=== PATIENT | female | born 1970 | race Caucasian/White ===

== ENCOUNTER 2019-04-02 15:26 | Outpatient (CLI) | payer BC, SELFPAY ==
--- NOTE | 2019-04-02 15:00 | DI.RAD_ITS ---
SYMPTOM/DIAGNOSIS: COUGH X 2 MONTHS R05 PA AND LATERAL CHEST: 04/02 The heart is normal in size. The lungs are clear. The mediastinal structures and pleura appear intact. CONCLUSION: Normal chest.
[2019-04-02 15:32] LABS: Abs Immature Grans 0.02 k/cumm (0.0-0.09); Absolute Basophil Count 0.03 k/cumm (0.0-0.2); Absolute Eosinophil Count 0.07 k/cumm (0.0-0.7); Absolute Lymphocyte Count 1.09 k/cumm (1.2-3.4); Absolute Monocyte Count 0.67 k/cumm (0.11-0.7); Absolute Neutrophil Count 5.21 k/cumm (1.2-6.7); Basophils % 0.4; HCT 40.8 % (36.0-46.0); HGB 13.5 g/dL (12.0-15.5); Immature Grans % 0.3; Lymphocytes % 15.4; Mean Corp. HGB Concentration 33.1 g/dL (32.0-36.0); Mean Corpuscular Volume 93.6 fL (80-95); Mean Platelet Volume 9.7 fL (8.0-11.0); Monocytes % 9.4; Neutrophils % 73.5; Platelet Count 403 x1000/uL (130-400); RBC 4.36 m/cumm (4.00-5.20); RBC Distribution Width 13.5 % (11.7-14.6); White Blood Cell Count 7.09 k/cumm (4.4-10.8)
[2019-04-02 16:52] LABS: ALT 22 U/L (14-59); AST 15 U/L (15-37); Albumin 3.9 g/dL (3.4-5.0); Alkaline Phosphatase 83 U/L (46-116); Anion Gap 9.3 mmol/L (3-11); BUN 15 mg/dL (7-18); Bilirubin, Total 0.3 mg/dL (0.2-1.0); CO2 26.7 mmol/L (21.0-32.0); CREATININE 0.79 mg/dL (0.55-1.02); Calcium 9.4 mg/dL (8.5-10.1); Chloride 100 mmol/L (98-107); Glucose 86 mg/dL (70-100); Potassium 4.3 mmol/L (3.5-5.1); Sodium 136 mmol/L (136-145); TSH 1.98 uIU/mL (0.36-3.74); Total Protein 7.4 g/dL (6.4-8.2)
== END 2019-04-02 15:46 ==
PROVIDERS: PCP Internal Medicine; Visit Provider Internal Medicine
DX: R05 Cough (principal); R10.9 Unspecified abdominal pain; R53.83 Other fatigue; R50.9 Fever, unspecified
CPT/HCPCS: 36415; 80053; 71046; 84443; 85025

== ENCOUNTER 2019-04-02 15:47 | Outpatient (REF) | payer BC, SELFPAY ==
--- NOTE | 2019-04-02 | PAPFT_PTH ---
PATIENT: Radha Boyce LOC: [facility] U#:[id number] AGE/SX: 48/F ROOM: RE04/02/[address]: Alda Lebron MD : 1970 BED: DIS: 04/02/2019 SPEC #: [id number] RECD: 04/03/19 12:50 STATUS: ADRIANA REQ #: [id number] HERBERT: 04/02/19 00:[address]: Alda Chaves DEPT: [facility] Cytology RECD BY: Melonie Anderson Tissues: 1 - CX/ENDOCX FOR PAP SMEARS Procedures: PAP THIN PREP/UVM Screening HPV DNA PROBE Comments: [id number]
== END 2019-04-02 16:07 ==
LOC: LBN 15:47
PROVIDERS: PCP Internal Medicine; Visit Provider Internal Medicine
DX: Z12.4 Encounter for screening for malignant neoplasm of cervix (principal); Z11.51 Encounter for screening for human papillomavirus (HPV)
CPT/HCPCS: 88142; 87624

== ENCOUNTER 2019-05-24 01:27 | Outpatient (CLI) | payer BC, SELFPAY ==
--- NOTE | 2019-05-24 12:05 | DI.MAMMO_ITS ---
EXAM: MG MAMMO SCREENING CLINICAL HISTORY: screening Z12.39 TECHNIQUE: Bilateral full field digital CC and MLO mammographic images were obtained with 3D tomosyn thesis and utilizing computer aided detection (CAD). COMPARISON: 2016 from [facility]. FINDINGS: The breasts are composed of heterogeneously dense fibroglandular tissue, breast density category C. No suspicious microcalcifications are seen.There has been no significant change. IMPRESSION: BI-RADS category 1, negative mammogram. Yearly screening mammography is recommended. BI-RADS Cat 1 - Negative. Breast Density - Category C - Heterogeneously dense.
== END 2019-05-24 01:47 ==
PROVIDERS: PCP Internal Medicine; Visit Provider Internal Medicine
DX: Z12.31 Encounter for screening mammogram for malignant neoplasm of breast (principal)
CPT/HCPCS: 77063; 77067

== ENCOUNTER 2020-04-10 20:55 | Outpatient (REF) | payer BC, SELFPAY ==
[2020-04-10 21:49] LABS: Calculated LDL 91 mg/dL (<100); Cholesterol 218 mg/dL (<200); HDL Cholesterol 114 mg/dL (40-60); Triglyceride 68 mg/dL (<150)
[2020-04-10 22:08] LABS: Hemoglobin A1C 5.3 % (<5.7)
== END 2020-04-10 21:15 ==
LOC: LBN 20:55
PROVIDERS: PCP Nurse Practitioner; Visit Provider Nurse Practitioner
DX: Z13.1 Encounter for screening for diabetes mellitus (principal); Z13.6 Encounter for screening for cardiovascular disorders
CPT/HCPCS: 80061; 83036

== ENCOUNTER 2020-05-26 02:15 | Outpatient (CLI) | payer BC, SELFPAY ==
--- NOTE | 2020-05-26 07:00 | DI.MAMMO_ITS ---
EXAM: MG MAMMO SCREENING CLINICAL HISTORY: screening,Z12.39 TECHNIQUE: Bilateral full field digital CC and MLO mammographic images were obtained with 3D tomosyn thesis and utilizing computer aided detection (CAD). COMPARISON: Available for comparison. FINDINGS: Masses/Architectural Distortion: None seen. Microcalcifications: No suspicious pleomorphic-type are seen. Skin Thickening/Nipple Retraction: None. IMPRESSION: 1. No significant interval change with no specific features of malignancy noted. 2. Unless there is more urgent need, screening mammography is recommended, as per [employer] guidelines. BI-RADS Category 1 - Negative Breast Density - Category C - Heterogeneously dense The mammogram demonstrates the patient's breast tissue is dense. Dense breast tissue is very common a nd is not abnormal but dense breast tissue can make it harder to find cancer on a mammogram. Also, de nse breast tissue may increase their breast cancer risk. This information about the result of the [facility] mogram report was provided to the patient to raise their awareness. Use this report when you speak wi th the patient about their risks for breast cancer, which includes their family history. At that time , you may recommend for more screening tests (Ultrasound or MRI) as they might be useful based on the ir risk. A negative radiographic report should not delay biopsy if a dominant or clinically suspicious mass is present. Up to ten percent of cancers are not identified on mammography. A negative report may reinforce clinical impression. Adenosis and dense breasts may obscure an underlying neoplasm. False positive reports average 6 to 10%. Patient will receive a letter notifying them of these results.
== END 2020-05-26 02:35 ==
PROVIDERS: PCP Nurse Practitioner; Visit Provider Nurse Practitioner
DX: Z12.31 Encounter for screening mammogram for malignant neoplasm of breast (principal)
CPT/HCPCS: 77063; 77067

== ENCOUNTER 2020-10-10 13:43 | Outpatient (CLI) | payer BC, SELFPAY ==
--- NOTE | 2020-10-10 10:00 | DI.RAD_ITS ---
EXAM: XR ELBOW RT COMPLETE CLINICAL HISTORY: elbow pain x4 months, no known injury, M25.521. TECHNIQUE: 2D digital imaging was performed. COMPARISON: No exams were available for comparison FINDINGS: BONES: No acute fracture is present. No bony destructive lesion is seen. JOINTS: The elbow is normally aligned. No joint effusion is seen. SOFT TISSUE: Normal. IMPRESSION: Unremarkable radiographs of the right elbow. DATA REPOSITORY: RADIATION DOSE DELIVERED:
== END 2020-10-10 14:03 ==
DX: M25.521 Pain in right elbow (principal)
CPT/HCPCS: 73080

== ENCOUNTER 2021-07-27 01:01 | Outpatient (CLI) | payer BC, SELFPAY ==
--- NOTE | 2021-07-27 07:00 | DI.MAMMO_ITS ---
Exam(s) MAMMO SCREENING EXAM: MAMMO SCREENING CLINICAL HISTORY: screening,z12.39 TECHNIQUE: Mammograms were interpreted according to the usual protocol including computer analysis w [employer] CAD system, tomosynthesis and C-view imaging. COMPARISON: 2015 through 2019 FINDINGS: The breasts are composed of scattered fibroglandular densities, Breast Density category B. No suspicious masses or suspicious microcalcifications are seen. No skin thickening or abnormal axillary lymph nodes are seen. There has been no significant change from prior exams. IMPRESSION: BI-RADS Category 1, Negative mammogram Yearly screening mammography is recommended. Breast Density - Category B, scattered fibroglandular densities. A negative radiographic report should not delay biopsy if a dominant or clinically suspicious mass is present. Up to ten percent of cancers are not identified on mammography. A negative report may reinforce clinical impression. Adenosis and dense breasts may obscure an underlying neoplasm. False positive reports average 6 to 10%. Patient will receive a letter notifying them of these results.
== END 2021-07-27 01:21 ==
DX: Z12.31 Encounter for screening mammogram for malignant neoplasm of breast (principal)
CPT/HCPCS: 77063; 77067

== ENCOUNTER 2021-07-27 02:38 | Outpatient (CLI) | payer BC, SELFPAY ==
[2021-07-27 09:01] LABS: ALT 38 U/L (14-59); AST 29 U/L (15-37); Albumin 3.9 g/dL (3.4-5.0); Alkaline Phosphatase 93 U/L (46-116); BUN 29 mg/dL (7-18); Bilirubin, Total 0.3 mg/dL (0.2-1.0); Calcium 9.5 mg/dL (8.5-10.1); Chloride 103 mmol/L (98-107); Glucose 86 mg/dL (74-106); Potassium 4.9 mmol/L (3.5-5.1); Sodium 142 mmol/L (136-145); Total Protein 7.6 g/dL (6.4-8.2)
== END 2021-07-27 02:39 | disposition home or self-care (01) ==
LOC: LBO 02:38
DX: Z00.00 Encounter for general adult medical examination without abnormal findings (principal)
CPT/HCPCS: 36415; 80053

== ENCOUNTER 2023-01-13 20:30 | Outpatient (REF) | payer BC, SELFPAY ==
[2023-01-13 20:32] LABS: Source Nasal/Nares
[2023-01-13 21:17] LABS: COVID-19 PCR Negative (Negative)
== END 2023-01-13 20:31 | disposition home or self-care (01) ==
LOC: LBN 20:30
PROVIDERS: PCP Family Medicine; Visit Provider Nurse Practitioner Family
DX: R53.83 Other fatigue (principal); Z20.822 Contact with and (suspected) exposure to COVID-19
CPT/HCPCS: 87635; U0003

== ENCOUNTER 2023-01-18 02:02 | Outpatient (CLI) | payer BC, SELFPAY ==
[2023-01-18 14:12] LABS: Abs Immature Grans 0.02 10^3/uL (0.0-0.06); Absolute Basophil Count 0.04 10^3/uL (0.0-0.2); Absolute Eosinophil Count 0.09 10^3/uL (0.0-0.7); Absolute Lymphocyte Count 1.27 10^3/uL (1.2-3.4); Absolute Monocyte Count 0.62 10^3/uL (0.1-0.8); Basophils % 0.7; Eosinophils % 1.5; HCT 38.6 % (36.0-46.0); HGB 12.8 g/dL (11.2-15.7); Immature Grans % 0.3; Lymphocytes % 20.7; MCH 31.1 pg (27.0-33.0); MCHC 33.2 % (32.0-36.0); MCV 94 fL (80-95); MPV 9.7 fL (8.0-11.0); Monocytes % 10.1; Neutrophils % 66.7; Platelet Count 323 10^3/uL (130-400); RBC 4.12 10^6/uL (3.93-5.22); RDW 13.2 % (11.7-14.6); RDW-SD 45.7 fL; WBC 6.14 10^3/uL (4.4-10.8)
[2023-01-18 15:05] LABS: Anion Gap 9.5 mmol/L (3-11); BUN 13 mg/dL (7-18); CO2 27.5 mmol/L (21.0-32.0); CREATININE 0.9 mg/dL (0.55-1.02); Calcium 9.2 mg/dL (8.5-10.1); Calculated LDL 109 mg/dL (<100); Chloride 104 mmol/L (98-107); Cholesterol 224 mg/dL (<200); Estimated GFR 75.97 (mL/min/1.73m2); Glucose 99 mg/dL (74-106); HDL Cholesterol 104 mg/dL (40-60); Potassium 4.1 mmol/L (3.5-5.1); Sodium 141 mmol/L (136-145); Triglyceride 56 mg/dL (<150)
== END 2023-01-18 02:03 | disposition home or self-care (01) ==
PROVIDERS: PCP Family Medicine; Visit Provider Nurse Practitioner Family
DX: F32.9 Major depressive disorder, single episode, unspecified (principal); J45.20 Mild intermittent asthma, uncomplicated; K58.9 Irritable bowel syndrome, unspecified; Z00.00 Encounter for general adult medical examination without abnormal findings
CPT/HCPCS: 36415; 80048; 80061; 85025

== ENCOUNTER 2023-01-27 02:22 | Outpatient (CLI) | payer BC, SELFPAY ==
--- NOTE | 2023-01-27 12:40 | DI.MAMMO_ITS ---
Exam(s) MAMMO SCREENING EXAM: MAMMO SCREENING CLINICAL HISTORY: screening, Z12.39 TECHNIQUE: Mammograms were interpreted according to the usual protocol including computer analysis w [employer] CAD system, tomosynthesis and C-view imaging. COMPARISON: 2015 through 2021 FINDINGS: The breasts are composed of scattered fibroglandular densities, Breast Density category B. No suspicious masses or suspicious microcalcifications are seen. No skin thickening or abnormal axillary lymph nodes are seen. There has been no significant change from prior exams. IMPRESSION: BI-RADS Category 1, Negative mammogram Yearly screening mammography is recommended. Breast Density - Category B, scattered fibroglandular densities. A negative radiographic report should not delay biopsy if a dominant or clinically suspicious mass is present. Up to ten percent of cancers are not identified on mammography. A negative report may reinforce clinical impression. Adenosis and dense breasts may obscure an underlying neoplasm. False positive reports average 6 to 10%. Patient will receive a letter notifying them of these results.
== END 2023-01-27 02:42 ==
LOC: DI 02:22
PROVIDERS: PCP Family Medicine; Visit Provider Nurse Practitioner Family
DX: Z12.31 Encounter for screening mammogram for malignant neoplasm of breast (principal)
CPT/HCPCS: 77063; 77067

== ENCOUNTER 2024-02-10 18:02 | Outpatient (REF) | payer BC, SELFPAY | END 2024-02-10 18:03 | disposition home or self-care (01) | LOC: LBN 18:02 | PROVIDERS: PCP Nurse Practitioner Family; Visit Provider Nurse Practitioner Family | DX: N89.8 Other specified noninflammatory disorders of vagina (principal) | CPT/HCPCS: 87480; 87510; 87660 ==

== ENCOUNTER 2024-02-13 10:13 | Outpatient (REF) | payer BC, SELFPAY ==
--- NOTE | 2024-02-13 09:00 | PAPFT_PTH ---
PATIENT: Radha Boyce LOC: [facility] U#:[id number] AGE/SX: 53/F ROOM: RE02/13/[address]: Eileen Peterson NP : 1970 BED: DIS: 02/13/2024 SPEC #: [id number] RECD: 02/13/24 13:23 STATUS: ADRIANA SHIPMAN #: [id number] HERBERT: 02/13/24 09:[address]: Eileen Peterson DEPT: [facility] Cytology RECD BY: Melonie Anderson Tissues: 1 - CX/ENDOCX FOR PAP SMEARS Procedures: PAP THIN PREP/UVM Screening HPV DNA PROBE Comments: [id number] (HPV 16 & 18/45)
== END 2024-02-13 10:14 | disposition home or self-care (01) ==
LOC: LBN 10:13
PROVIDERS: PCP Nurse Practitioner Family; Visit Provider Nurse Practitioner Family
DX: R06.83 Snoring (principal); Z00.00 Encounter for general adult medical examination without abnormal findings; F33.9 Major depressive disorder, recurrent, unspecified; K58.9 Irritable bowel syndrome, unspecified; J45.20 Mild intermittent asthma, uncomplicated; E66.3 Overweight; R53.83 Other fatigue
CPT/HCPCS: 88142; 87624

== ENCOUNTER 2024-02-20 12:34 | Outpatient (CLI) | payer BC, SELFPAY ==
[2024-02-20 11:34] LABS: HGB 14.3 g/dL (11.2-15.7); MCH 31.5 pg (27.0-33.0); MCHC 33.3 % (32.0-36.0); MCV 95 fL (80-95); Platelet Count 381 10^3/uL (130-400); RBC 4.54 10^6/uL (3.93-5.22); RDW-SD 45.5 fL
[2024-02-20 12:19] LABS: Anion Gap 8.6 mmol/L (3-11); BUN 17 mg/dL (7-18); CO2 28.4 mmol/L (21.0-32.0); CREATININE 0.9 mg/dL (0.55-1.02); Calcium 9.6 mg/dL (8.5-10.1); Calculated LDL 121 mg/dL (<100); Chloride 102 mmol/L (98-107); Cholesterol 258 mg/dL (<200); Ferritin 184 ng/mL (8-252); Glucose 85 mg/dL (74-106); HDL Cholesterol 130 mg/dL (40-60); Potassium 4.3 mmol/L (3.5-5.1); Sodium 139 mmol/L (136-145); TSH (W/Ref FT4) 1.34 uIU/mL (0.36-3.74); Triglyceride 39 mg/dL (<150)
[2024-02-20 13:20] LABS: Iron 115 ug/dL (50-170); Total Iron Binding Capacity 308 ug/dL (250-450); Transferrin Sat 37 % (15-50)
== END 2024-02-20 12:35 | disposition home or self-care (01) ==
LOC: LBO 12:34
PROVIDERS: PCP Nurse Practitioner Family; Visit Provider Nurse Practitioner Family
DX: R06.83 Snoring (principal); J45.20 Mild intermittent asthma, uncomplicated; K58.9 Irritable bowel syndrome, unspecified; F33.9 Major depressive disorder, recurrent, unspecified; R53.83 Other fatigue
CPT/HCPCS: 36415; 80048; 80061; 85027; 82728; 83540; 83550; 84443

== ENCOUNTER → 2024-02-27 02:16 | Outpatient (CLI) | payer BC, SELFPAY ==
--- NOTE | 2024-02-27 06:30 | DI.MAMMO_ITS ---
Exam(s) MAMMO SCREENING EXAM: MAMMO SCREENING CLINICAL HISTORY: screening,z12.39. TECHNIQUE: Bilateral full field digital CC and MLO mammographic images were obtained with 3D tomosyn thesis and utilizing computer aided detection (CAD). COMPARISON: Prior mammograms were reviewed. FINDINGS: There has been no significant change in the appearance and distribution of the fibroglandular tissue. There are no CAD designations. There are no new spiculated masses nor malignant appearing microcalcification groups. There is no significant architectural distortion nor skin thickening-retraction. IMPRESSION: No radiographic evidence of malignancy. BI-RADS Category 1 - Negative Breast Density - Category B - Scattered areas of fibroglandular density Breast density Category C or D implies that the patient has dense breast tissue. Dense breast tissue can make it harder to find cancer on a mammogram. Dense breast tissue is also associated with an incr eased risk of breast cancer. This information about the result of the mammogram report was provided to the patient to raise their awareness. Use this report when you speak with the patient about their risks for breast cancer, which includes their family history. At that time, you may recommend additional screening tests (Ultrasoun d or MRI) as these tests may add significant information. A negative radiographic report should not delay biopsy if a dominant or clinically suspicious mass is present. Up to ten percent of cancers are not identified on mammography. A negative report may reinforce clinical impression. Adenosis and dense breasts may obscure an underlying neoplasm. False positive reports average 6 to 10%. Patient will receive a letter notifying them of these results.
== END ==
PROVIDERS: PCP Nurse Practitioner Family; Visit Provider Nurse Practitioner Family
DX: Z12.39 Encounter for other screening for malignant neoplasm of breast (principal)
CPT/HCPCS: 77063; 77067

== ENCOUNTER 2025-03-19 02:05 | Outpatient (CLI) | payer OTHER, SELFPAY ==
--- NOTE | 2025-03-19 08:45 | DI.MAMMO_ITS ---
Exam(s) MAMMO SCREENING EXAM: MAMMO SCREENING CLINICAL HISTORY: screening,z12.39 TECHNIQUE: Bilateral full field digital CC and MLO mammographic images were obtained with 3D tomosynthesis and utilizing computer aided detection (CAD). COMPARISON: Comparison is made with prior examinations. FINDINGS: Masses/Architectural Distortion: No suspicious masses or areas of architectural distortion are present. Microcalcifications: No suspicious pleomorphic-type are seen. Skin Thickening/Nipple Retraction: None. IMPRESSION: 1. No significant interval change with no specific features of malignancy noted. 2. Unless there is more urgent need, screening mammography is recommended, as per [employer] guidelines. BI-RADS Category 1 - Negative Breast Density - Category B - There are scattered areas of fibroglandular density. Breast density Category C or D implies that the patient has dense breast tissue. Dense breast tissue can make it harder to find cancer on a mammogram. Dense breast tissue is also associated with an increased risk of breast cancer. This information about the result of the mammogram report was provided to the patient to raise their awareness. Use this report when you speak with the patient about their risks for breast cancer, which includes their family history. At that time, you may recommend additional screening tests (Ultrasound or MRI) as these tests may add significant information. A negative radiographic report should not delay biopsy if a dominant or clinically suspicious mass is present. Up to ten percent of cancers are not identified on mammography. A negative report may reinforce clinical impression. Adenosis and dense breasts may obscure an underlying neoplasm. False positive reports average 6 to 10%. Patient will receive a letter notifying them of these results.
== END 2025-03-19 02:25 ==
LOC: DI 02:05
PROVIDERS: PCP Nurse Practitioner Family; Visit Provider Nurse Practitioner Family
DX: Z12.31 Encounter for screening mammogram for malignant neoplasm of breast (principal); R92.323 Mammographic fibroglandular density, bilateral breasts
CPT/HCPCS: 77063; 77067

== ENCOUNTER 2025-03-19 09:25 | Outpatient (CLI) | payer OTHER, SELFPAY ==
[2025-03-19 10:30] LABS: ALT 24 U/L (14-59); AST 22 U/L (15-37); Albumin 4.0 g/dL (3.4-5.0); Alkaline Phosphatase 75 U/L (46-116); Anion Gap 7.6 mmol/L (3-11); BUN 19 mg/dL (7-18); Bilirubin, Total 0.6 mg/dL (0.2-1.0); CO2 29.4 mmol/L (21.0-32.0); Calcium 9.2 mg/dL (8.5-10.1); Calculated LDL 118 mg/dL (<100); Chloride 103 mmol/L (98-107); Cholesterol 251 mg/dL (<200); Estimated GFR 101.44 (mL/min/1.73m2); Glucose 96 mg/dL (74-106); HDL Cholesterol 123 mg/dL (>or=50); Potassium 4.1 mmol/L (3.5-5.1); Sodium 140 mmol/L (136-145); Total Protein 7.6 g/dL (6.4-8.2); Triglyceride 54 mg/dL (<150)
== END 2025-03-19 09:26 | disposition home or self-care (01) ==
LOC: LBO 09:25
PROVIDERS: PCP Nurse Practitioner Family; Visit Provider Nurse Practitioner Family
DX: F33.9 Major depressive disorder, recurrent, unspecified; K58.9 Irritable bowel syndrome, unspecified; J45.20 Mild intermittent asthma, uncomplicated; R06.83 Snoring
CPT/HCPCS: 36415; 80053; 80061